=== PATIENT | male | born 1970 | race Caucasian/White ===

== ENCOUNTER → 2021-04-22 | Outpatient (CLI) | payer BC, OTHER | LOC: SJCVCIMAG 04-08 09:27 | PROVIDERS: ATTEND Internal Medicine Cardiovascular Disease | DX: I49.3 Ventricular premature depolarization (principal); R53.83 Other fatigue; R06.00 Dyspnea, unspecified ==

== ENCOUNTER → 2021-10-17 | Outpatient (CLI) | payer BC, OTHER | LOC: RAD 15:00 | PROVIDERS: ATTEND Family Medicine | DX: R05.9 Cough, unspecified (principal) ==